=== PATIENT | female | born 1990 ===

== ENCOUNTER → 2019-06-18 11:18 | Outpatient (BNVA) | payer MEDICAID, SELFPAY | PROVIDERS: Family Provider Family Medicine; PCP Family Medicine; Visit Provider Nurse Practitioner | DX: N39.0 Urinary tract infection, site not specified (principal); Z72.51 High risk heterosexual behavior; F41.1 Generalized anxiety disorder; N76.0 Acute vaginitis | CPT/HCPCS: 81000; 87491; 87591; 87661 ==

== ENCOUNTER → 2019-09-22 16:00 | Outpatient (BNVA) | payer MEDICAID, SELFPAY | PROVIDERS: Family Provider Family Medicine; Visit Provider Internal Medicine | DX: R76.8 Other specified abnormal immunological findings in serum; E11.9 Type 2 diabetes mellitus without complications; B18.2 Chronic viral hepatitis C; E78.5 Hyperlipidemia, unspecified | CPT/HCPCS: 80053; 82105; 85025; 87522 ==

== ENCOUNTER → 2019-10-29 16:11 | Outpatient (BNVA) | payer MEDICAID, SELFPAY | PROVIDERS: Family Provider Family Medicine; Visit Provider Internal Medicine | DX: B18.2 Chronic viral hepatitis C (principal) | CPT/HCPCS: 87902 ==

== ENCOUNTER → 2019-12-18 10:32 | Outpatient (BNVA) | payer MEDICAID, SELFPAY | PROVIDERS: Family Provider Family Medicine; Visit Provider Internal Medicine | DX: B18.2 Chronic viral hepatitis C (principal) | CPT/HCPCS: 87522 ==

== ENCOUNTER → 2020-03-16 09:20 | Outpatient (BNVA) | payer MEDICAID, SELFPAY | PROVIDERS: Family Provider Family Medicine; Visit Provider Nurse Practitioner Family | DX: B18.2 Chronic viral hepatitis C (principal); R76.8 Other specified abnormal immunological findings in serum | CPT/HCPCS: 80053; 87522 ==

== ENCOUNTER → 2022-03-13 09:55 | Outpatient (BNVA) | payer MEDICAID, SELFPAY | PROVIDERS: PCP Family Medicine; Visit Provider Registered Nurse | DX: R05.9 Cough, unspecified (principal); J20.8 Acute bronchitis due to other specified organisms; F17.210 Nicotine dependence, cigarettes, uncomplicated | CPT/HCPCS: 87400 ==

== ENCOUNTER → 2022-03-31 08:14 | Outpatient (BNVA) | payer MEDICAID, SELFPAY | PROVIDERS: PCP Family Medicine; Visit Provider Specialist | DX: J03.01 Acute recurrent streptococcal tonsillitis (principal) | CPT/HCPCS: 80053; 85007; 85027 ==

== ENCOUNTER → 2022-04-03 08:49 | Outpatient (BNVA) | payer MEDICAID, SELFPAY | PROVIDERS: PCP Family Medicine; Visit Provider Specialist | DX: J03.01 Acute recurrent streptococcal tonsillitis (principal) | CPT/HCPCS: 85610; 85730 ==

== ENCOUNTER → 2024-04-18 07:55 | Outpatient (BNVA) | payer MEDICAID, SELFPAY | PROVIDERS: PCP Family Medicine; Visit Provider Nurse Practitioner Family | DX: R68.89 Other general symptoms and signs (principal) | CPT/HCPCS: 87400 ==